=== PATIENT | male | born 1980 | race Caucasian/White ===

== ENCOUNTER 2021-12-30 11:58 | Emergency (ER) | payer SELFPAY ==
--- NOTE | 2021-12-30 12:09 | ED.EYEPROB ---
HPI - Eye Problem General Chief complaint: Eye Problems Stated complaint: EYE REDNESS Time Seen by Provider: 12/30/21 12:09 Source: patient Mode of arrival: ambulatory Limitations: no limitations Related Data Allergies Allergy/AdvReac Type Severity Reaction Status Date / Time No Known Allergies Allergy Unverified 10/20/11 12:06 Discharge Plan Discharge Clinical Impression: Corneal abrasion Patient Disposition: Home, Self-Care Condition: Stable Instructions: Antibiotic Form, Corneal Abrasion (ED) Additional Instructions: Use medications as prescribed. After eye symptoms have resolved, use antibiotic ointment for one more day and then stop. For any worsening of symptoms go to the ER. Prescriptions: New erythromycin 5 mg/gram (0.5 %) ointment 1 applic RIGHT EYE QID 7 Days Qty: 3.5 RF: 0 ketorolac 0.5 % drops 1 drp RIGHT EYE Q6H PRN (Reason: pain) Qty: 3 RF: 0 Follow-up/Referrals: Cj Frances MD [Primary Care Provider] - Time of Disposition:
[2021-12-30 12:11] VITALS: BP 153/99; PULSE 92; RESP 16; TEMP 36.4; O2SAT 98
--- NOTE | 2021-12-30 12:36 | ED.EYEPROB ---
HPI - Eye Problem General Chief complaint: Eye Problems Stated complaint: EYE REDNESS Time Seen by Provider: 12/30/21 12:09 Source: patient Mode of arrival: ambulatory Limitations: no limitations History of Present Illness HPI Narrative: 41 yo M presents with c/o redness, watery R eye for 2 to 3 days. Was working outside on RV on a windy day. Does not remember anything flying into eye. several hours after he was done, sat down at dinner table and felt pain to R eye, wiped eye. No longer having pain but is having irritation from rubbing drainge from eye. no vision change. does not wear contacts. All systems reviewed and except as noted above. Related Data Allergies Allergy/AdvReac Type Severity Reaction Status Date / Time No Known Allergies Allergy Unverified 10/20/11 12:06 Review of Systems Review of Systems: CONSTITUTIONAL: Denies fever, chills, or sweats. EYES: Denies visual changes. Reports redness and discharge. ENT: Denies rhinorrhea, congestion, sore throat, or otalgia. CARDIOVASCULAR: Denies chest pain, palpitations, or edema. RESPIRATORY: Denies cough or dyspnea. GASTROINTESTINAL: Denies abdominal pain, nausea, vomiting, or diarrhea. GENITOURINARY: Denies dysuria or hematuria. SKIN: Denies rash or itching. MUSCULOSKELETAL: Denies back pain, joint pain, or myalgia. NEUROLOGIC: Denies headache, numbness, or weakness. PSYCHIATRIC: Denies anxiety or depression. All other systems reviewed are negative, except as documented in HPI. PMFSH Comments At time of signature, agree with nursing past medical, surgical, social and family history. There is no relevant family history pertinent to the presenting complaint. Exam Narrative: GENERAL: This is a well-nourished, well-developed patient, in no apparent distress. HEAD: normocephalic, atraumatic. EYES: PERRL. Sclera clear/white. Vision is grossly intact. Erythema and mild tissue swelling to upper and lower lids. Corneal abrasion noted with fluorescein stain to right eye. No foreign body. EARS: External ears normal, auditory canals clear and without drainage, TMs normal without perforation. Hearing grossly intact. NOSE: External nose normal with no obvious nasal discharge, nares without redness, no rhinorrhea. THROAT: Mucous membranes moist, posterior pharynx clear. NECK: Neck supple, non-tender without lymphadenopathy, masses or thyromegaly. CARDIOVASCULAR: Regular rate and rhythm without murmurs, gallops, or rubs. RESPIRATORY: Clear to auscultation. Breath sounds equal bilaterally. No wheezes, rales, or rhonchi. GASTROINTESTINAL: Abdomen soft, non-tender, nondistended. Bowel sounds are active. No hepato-splenomegaly, or palpable masses. No guarding. SKIN: warm, Dry, intact with no suspicious lesions or rash, good texture and turgor. NEURO: awake, alert, and oriented to person, place and time. There were no obvious focal neurologic abnormalities. EXTREMITIES: No joint tenderness, effusion, or edema noted. No calf tenderness. Negative Homans sign bilaterally. BACK: Nontender without deformity. No CVA tenderness. Eyes: Eyes/upper lids images: 1. corneal abrasion noted Course Course Level of Care: Express Care Visit Vital Signs Vital signs: Vital Signs Temperature 36.4 C 12/30/21 12:11 Pulse Rate 92 12/30/21 12:11 Respiratory Rate 16 12/30/21 12:11 Blood Pressure 153/99 H 12/30/21 12:11 Pulse Oximetry 98 12/30/21 12:11 Temperature 36.4 C 12/30/21 12:11 Pulse Rate 92 12/30/21 12:11 Respiratory Rate 16 12/30/21 12:11 Blood Pressure 153/99 H 12/30/21 12:11 Pulse Oximetry 98 12/30/21 12:11 Reviewed MDM - Eye Problem MDM Narrative Medical decision making narrative: Patient is aware of diagnosis, understands and agrees to treatment plan. Anticipatory guidance given. Patient agrees to follow-up as directed and is aware of reasons to seek care at the emergency department. Portions of this record may have been created with voice recogniti
== END 2021-12-30 12:29 | disposition home or self-care (01) ==
PROVIDERS: Emergency Provider Nurse Practitioner Family; PCP Family Medicine
DX: S05.01XA Injury of conjunctiva and corneal abrasion without foreign body, right eye, initial encounter (principal); X58.XXXA Exposure to other specified factors, initial encounter
CPT/HCPCS: 99203; A9270; G0463

== ENCOUNTER 2023-07-02 14:23 | Emergency (ER) | payer SELFPAY ==
--- NOTE | ~2023-07-02 | XR_ITS ---
EXAMINATION: XR hand LT min 3V DATE: 07/02/2023 14:56 INDICATION: Pain at the left fourth and fifth metacarpals post dog bite TECHNIQUE: Posteroanterior, oblique and lateral views of the left hand were obtained. COMPARISON: 08/27/2015 FINDINGS: Alignment is normal. No fracture. Joint spaces are normal. Soft tissue swelling at the dorsal/ulnar a spect of the hand. No evident soft tissue gas or radiopaque foreign bodies. IMPRESSION: 1. No osseous abnormality or radiopaque foreign body. Reviewed, dictated and finalized at location A.
--- NOTE | 2023-07-02 14:41 | ED.ANIMALBIT ---
HPI - Animal Bite General Chief Complaint: Animal Bite Stated Complaint: Dog Bite Time Seen by Provider: 07/02/23 14:55 Source: patient and RN notes reviewed Mode of arrival: ambulatory Limitations: no limitations History of Present Illness HPI narrative: 42-year-old male presents with concern for dog bite to his left hand. Reports he was bit around noon today. Reports puncture wounds to left hand. Reports swelling, pain. Denies decreased sensation, strength, range of motion in the hand digits complaint: animal bite Related Data Allergies Allergy/AdvReac Type Severity Reaction Status Date / Time No Known Allergies Allergy Unverified 10/20/11 12:06 Review of Systems Review of Systems: CONSTITUTIONAL: Denies malaise, chills, sweats, or fever. SKIN: Reports puncture wounds to the left hand MUSCULOSKELETAL: Denies muscle skeletal pain NEUROLOGIC: Denies numbness, weakness All systems reviewed & are unremarkable except as noted in HPI and below PMFSH Comments At time of signature, agree with nursing past medical, surgical, social and family history. There is no relevant family history pertinent to the presenting complaint Exam Narrative: GENERAL: Well-appearing, well-nourished, and in no acute distress. HEAD: Normocephalic EYES: PERRLA, conjunctivae clear NECK: Supple. CHEST: Speaks in full sentences. No respiratory distress. HEART: Regular rate and rhythm. Normal and equal peripheral pulses. EXTREMITIES: Left hand and digits of hand have normal strength and sensation. 5/5 strength with digit flexion, extension. Range of motion normal. No clubbing, cyanosis. Mild dorsal edema noted. No tenderness. Skin intact. Normal digital cascade with flexion of fingers, median, ulnar and radial nerve intact. Normal sensation of each side of finger. No scissoring. Normal thumb opposition. Good capillary refill and radial pulse. Distal capillary refill less than 3 seconds. Patient is right/left hand dominant SKIN: Warn, dry, intact, pink. No rash NEURO: Alert and oriented x3. PSYCH: Normal mood and affect Course Course Emergency Course: Wounds cleaned, dressed with clean dressing. Patient is aware of diagnosis, understands and agrees to treatment plan. Anticipatory guidance given. Patient agrees to follow-up as directed and is aware of reasons to seek care at the emergency department. Portions of this record may have been created with voice recognition software Level of Care: Express Care Visit Vital Signs Vital signs: Reviewed. SHERI - Animal Bite MDM Narrative Medical decision making narrative: Does not appear at this time to be erythema multiforme, bullous, SJS, TEN; no evidence at this time to suggest RMSF, NSTI, endocarditis or Lyme disease; patient looks well, nontoxic and is tolerating oral intake; no neurologic signs or symptoms; no headache, photophobia or neck pain; afebrile. Patient does not have history of of penetrating trauma, laceration, blunt trauma, recent surgery, immunosuppression, malignancy, obesity, alcoholism, corticosteroid use. Discussed the importance of follow-up, patient agrees; question, cellulitis versus necrotizing soft tissue infection versus abscess. Differential Diagnosis Differential diagnosis: Likely dog bite and other (Cellulitis) Imaging Data Radiologist's impression: EXAMINATION: XR hand LT min 3V DATE: 07/02/2023 14:56 INDICATION: Pain at the left fourth and fifth metacarpals post dog bite TECHNIQUE: Posteroanterior, oblique and? lateral views of the left hand were obtained. COMPARISON: 08/27/2015 FINDINGS: Alignment is normal. No fracture. Joint spaces are normal. Soft tissue swelling at the dorsal/ulnar aspect of the hand. No evident soft tissue gas or radiopaque foreign bodies. IMPRESSION: 1. No osseous abnormality or radiopaque foreign body. Critical Care Time Critical Care Time Critical Care Time: No Discharge Plan Discharge Clinical Impression: Roxann steele
[2023-07-02 14:43] VITALS: BP 153/118; PULSE 103; RESP 16; TEMP 36.7; O2SAT 97
== END 2023-07-02 15:27 | disposition home or self-care (01) ==
PROVIDERS: Emergency Provider Nurse Practitioner
DX: S61.432A Puncture wound without foreign body of left hand, initial encounter (principal); W54.0XXA Bitten by dog, initial encounter; I10 Essential (primary) hypertension
CPT/HCPCS: 73130; 99213; G0463

== ENCOUNTER 2025-10-08 21:26 | Emergency (ER) | payer OTHER, SELFPAY ==
--- NOTE | ~2025-10-08 | XR_ITS ---
XR forearm RT 2V INDICATION: pain COMPARISON: None FINDINGS: Two views of the right forearm demonstrate no acute fracture or dislocation. IMPRESSION: No acute fracture or dislocation. Reviewed, dictated and finalized at location S. LIFEGUARD
--- NOTE | ~2025-10-08 | XR_ITS ---
XR hand LT min 3V INDICATION: fall . COMPARISON: None. FINDINGS: Frontal, lateral, and oblique views of the left hand demonstrate nondisplaced fracture of the distal radius. IMPRESSION: There is a nondisplaced fracture of the distal radius. Reviewed, dictated and finalized at location S. INAL PRESS OPERATOR
--- NOTE | ~2025-10-08 | CT_ITS ---
CT cervical spine wo con HISTORY: FALL HIT HEAD COMPARISON: None TECHNIQUE: Axial images of the cervical spine were obtained. Multiplanar reconstruction in the coronal, sagittal and axial reformats to evaluate for cervical fracture. FINDINGS: The images demonstrate no acute fracture or paravertebral soft tissue swelling. There is no high-grade central or foraminal stenosis. No significant degenerative changes are noted. The visualized aspect of the upper lungs are clear. IMPRESSION: No acute fracture or subluxation. All CT scans at this facility are performed using low dose modulation techniques as appropriate to perform exam including the following: automated exposure control; adjustment of the mA and/or kV according to patient size (this includes techniques or standardized protocols for targeted exams where does is matched to indication/reason for exam; i.e. extremities or head); use of iterative reconstruction technique). Reviewed, dictated and finalized at location S. NGUAL PATIENT SUPPORT CASEWORKER IMPRESSION: No acute fracture or subluxation. All CT scans at this facility are performed using low dose modulation techniqu es as appropriate to perform exam including the following: automated exposure c ontrol; adjustment of the mA and/or kV according to patient size (this includes techniques or standardized protocols for targeted exams where does is matched to indication/reason for exam; i.e. extremities or head); use of iterative demario nstruction technique).
--- NOTE | ~2025-10-08 | CT_ITS ---
CT brain wo con HISTORY:FALL HIT HEAD COMPARISON: None. TECHNIQUE: Axial images were obtained of the head without intravenous contrast. FINDINGS: No acute intracranial hemorrhage, mass effect or midline shift. No extra-axial fluid collections. The calvarium is intact. Visualized paranasal sinuses and mastoid air cells are clear. IMPRESSION: No acute intracranial hemorrhage or extra axial fluid collections. All CT scans at this facility are performed using low dose modulation techniques as appropriate to perform exam including the following: automated exposure control; use of iterative reconstruction technique; adjustment of the mA and/or kV according to patient size (this includes techniques or standardized protocols for targeted exams where dose is matched to indication/reason for exam). Reviewed, dictated and finalized at location S. ROUND BUTCHER IMPRESSION: No acute intracranial hemorrhage or extra axial fluid collections. All CT scans at this facility are performed using low dose modulation techniqu es as appropriate to perform exam including the following: automated exposure c ontrol; use of iterative reconstruction technique; adjustment of the mA and/or kV according to patient size (this includes techniques or standardized protocol s for targeted exams where dose is matched to indication/reason for exam).
--- NOTE | ~2025-10-08 | XR_ITS ---
XR wrist LT min 3V INDICATION: fall . COMPARISON: None. FINDINGS: Frontal, lateral and oblique views of the left wrist were obtained. Cortical WITHIN THE DISTAL RADIUS SUGGESTIVE OF A NONDISPLACED FRACTURE. IMPRESSION: Questionable nondisplaced fracture of the distal radius. Reviewed, dictated and finalized at location S. H CARE PROFESSIONAL
[2025-10-08 21:28] VITALS: BP 160/99; PULSE 110; RESP 20; TEMP 36.4; O2SAT 98
--- NOTE | 2025-10-08 21:30 | PC.NURSE ---
pt placed in a c collar
[2025-10-09 01:22] VITALS: BP 152/99; PULSE 99; RESP 14; TEMP 36.8; O2SAT 97
[2025-10-09 04:40] VITALS: BP 151/106; PULSE 98; RESP 16; O2SAT 98
--- NOTE | 2025-10-09 05:06 | ED_ITS ---
HPI - Fall General Chief Complaint: Fall Stated Complaint: fall Time Seen by Provider: 10/09/25 04:42 Source: patient and family Mode of arrival: ambulatory Limitations: no limitations History of Present Illness HPI Narrative: Patient is a 44-year-old male presents to the emergency department complaining of a fall. Patient notes that he fell, slipped on the ice, hit the right side of his head in the car and his left wrist of the covers wound, did not lose consciousness. Denies use of blood thinners. Is he is having pain to his V4, for this, inciting incident. Fluids he has been ambulatory since the event. Fall occurred just prior to arrival. Some sleepy sensation in his left hand since the fall, waxes and wanes. Has a history of injuries to these regions in the past. Denies any blood loss. Related Data Allergies Allergy/AdvReac Type Severity Reaction Status Date / Time No Known Allergies Allergy Verified 10/08/25 21:26 Review of Systems Review of Systems: A 10 system review of systems was completed on the patient and is negative exce pt for what is stated in the HPI. Nursing and ancillary documentation was reviewed. Exam Narrative: CONST: No acute distress. Well nourished. HENMT: Head is normocephalic. Mild swelling and tenderness to palpation over the right parietal region without palpable bony deformities no breaks in the skin. Moist mucous membranes. No posterior oropharynx erythema. EYES: No scleral icterus. No conjunctival injection or pallor. PERRL. NECK: No meningeal signs. RESP: Able to speak in full sentences. Normal respiratory effort. CTAB. CARDIO: Regular rate. Regular rhythm. 2+ DP and radial pulses bilaterally. GI: Nondistended. No tenderness to palpation. Soft. : No CVA tenderness to palpation. SKIN: No rashes or lesions noted on exposed skin. NEURO: Oriented x3. Moves all extremities. EXTREM/MSK/BACK: No pedal edema. No midline vertebral tenderness to palpation or palpable step-offs. Moderate tenderness palpation in the left distal radius without obvious deformity, no breaks in the skin. Capillary refill is less than 2 seconds in all distal digits to the left hand. Patient is able to make an okay sign and a fist and abduct and adduct all his fingers of the left hand. Patient is able to flex and extend his left wrist. Compartments are soft throughout the bilateral upper extremities. Patient endorses decreased sensation to light touch throughout the left hand compared to the right. No snuffbox tenderness palpation bilaterally. Mild tenderness to palpation of the right proximal forearm without overlying breaks in the skin, no palpable deformity. Mild tenderness to palpation diffusely throughout the left hand. PSYCH: Normal affect. Course Vital Signs Vital signs: Vital Signs Temperature 97.5 F L 10/08/25 21:28 Pulse Rate 110 H 10/08/25 21:28 Respiratory Rate 20 10/08/25 21:28 Blood Pressure 160/99 H 10/08/25 21:28 Pulse Oximetry 98 10/08/25 21:28 Oxygen Delivery Room Air 10/08/25 21:28 Temperature 98.2 F 10/09/25 01:22 Pulse Rate 98 10/09/25 04:40 Respiratory Rate 16 10/09/25 04:40 Blood Pressure 151/106 H 10/09/25 04:40 Pulse Oximetry 98 10/09/25 04:40 Oxygen Delivery Room Air 10/09/25 04:40 Procedures Orthopedic Splinting/Casting Injury #1: Splinting/Casting Date: 10/09/25 Splinting/Casting Time: 05:16 Side: left Upper Extremity Injury Location: forearm (distal radius) Upper Extremity Immobilizer: sugar tong splint Splint: prefabricated Pre-Procedure Neuro Vascular Exam: abnormal (Paresthesias diffusely throughout the left hand. Normal capillary refill. 2+ radial pulse. Motor str ength intact.) Post-Procedure Neuro Vascular Exam: abnormal (Paresthesias diffusely throughout the left hand. Normal capillary refill. Motor strength intact.) [facility] Narrative Medical decision making narrative: Patient presents with the above complaint. Initial vitals are remarkable for no significant abnormalities. Physical examination as noted above. Plan discussed: CT head and cervical spine, x-ray of the right forearm and left wrist and left hand, ice pack, oxycodone. Patient's compartments are soft, capillary refill is normal in the distal left hand, suspect a component of neurapraxia. Patient educated on signs symptoms of compartment syndrome and reasons to immediately return to the emergency department. I spoke with Orthopedics on-call Dr. Zamora who agrees with plan of care, very low suspicion for any compartment syndrome, also suspect this is likely related to neurapraxia. Patient was reassessed at the bedside. No changes in physical exam. Patient is in no acute distress. The patient has remained stable throughout the entire ED visit. Counseled patient regarding diagnostic results and potential diagnosis. Anticipatory guidance provided. Patient instructed to follow up with Orthopedics in 4-5 days. Patient counseled on: false reassurance from an emergency department evaluation; no current evidence of a medical emergency; return immediately for any new, recurrent, worsening, concerning, or refractory symptoms. Patient prescribed oxycodone, ibuprofen. Prescription sent to preferred pharmacy. Medications discussed with patient. Additional verbal and printed discharge instructions were given and discussed with the patient. Patient verbally acknowledges understanding of condition and discharge instructions. All questions were answered to the patient's satisfaction. Patient is in agreement with the plan of care. The patient is stable for discharge and was discharged without incident. Differential Diagnosis Differential Diagnosis: Fracture, contusion, sprain, strain, intracranial hemorrhage, other acute traumatic injuries. Imaging Data Attestation: I personally reviewed and interpreted this imaging study as follows: Radiologist's impression: ITS Impressions Hand X-Ray 10/08/25 22:08 IMPRESSION: There is a nondisplaced fracture of the distal radius. Wrist X-Ray 10/08/25 22:08 IMPRESSION: Questionable nondisplaced fracture of the distal radius. Forearm X-Ray 10/08/25 22:09 IMPRESSION: No acute fracture or dislocation. Head CT 10/08/25 22:10 IMPRESSION: No acute intracranial hemorrhage or extra axial fluid collections. All CT scans at this facility are performed using low dose modulation techniques as appropriate to perform exam including the following: automated exposure control; use of iterative reconstruction technique; adjustment of the mA and/or kV according to patient size (this includes techniques or standardized protocols for targeted exams where dose is matched to indication/reason for exam). Cervical Spine CT 10/08/25 22:13 IMPRESSION: No acute fracture or subluxation. All CT scans at this facility are performed using low dose modulation techniques as appropriate to perform exam including the following: automated exposure control; adjustment of the mA and/or kV according to patient size (this includes techniques or standardized protocols for targeted exams where does is matched to indication/reason for exam; i.e. extremities or head); use of iterative reconstruction technique). Discharge Plan Discharge Clinical Impression: Distal radius fracture, left, Fall, Contusion of scalp, Contusion of forearm, right Patient Disposition: Home Condition: Stable Instructions: Antibiotic Form, Arm Fracture in Adults (ED), Wrist Fracture in Adults (ED), Compartment Syndrome (DC), Contusion in Adults (ED), Splint Care (ED), P.R.I.C.E. Treatment (ED) Additional Instructions: Follow-up with orthopedic surgery in the next 5 days, call to schedule appointment, wear the splint at all times, keep your left arm elevated above your heart to help with swelling, take the pain medications as prescribed as needed, return immediately to the emergency department for any new or concerning symptoms especially sudden increase in pain, decreased range of motion of your left hand, new or concerning sensation changes, or any emergent concerns for life, limb, eyesight. Patient Language: Turkish Prescriptions: New oxycodone 5 mg tablet 5 mg PO Q6H MDD 4 tabs PRN (Reason: pain) 3 Days Qty: 12 0RF ibuprofen 600 mg tablet 600 mg PO Q6H PRN (Reason: pain) Qty: 30 0RF No Action amoxicillin-pot clavulanate 875-125 mg tablet 1 tablet PO Q12H 10 Days Qty: 20 0RF Follow-up/Referrals: Jesus Acosta MD [Physician, Orthopedics] - 10/12/25 PHYSICIAN,STEREOTYPER [Primary Care Provider, Internal Medicine] Time of Disposition: 05:27
[2025-10-09] MEDS: oxyCODONE/ACETAMINOPHEN (*CRX) 10-325 MG TABLET 1 TAB PO (05:26)
[2025-10-09] MEDS: KETOROLAC 30 MG/ML VIAL (*BKC) 15 MG IM (05:27)
[2025-10-09 05:58] VITALS: BP 140/95; PULSE 93; RESP 18; O2SAT 97
== END 2025-10-09 06:03 | disposition home or self-care (01) ==
PROVIDERS: Emergency Provider Student in an Organized Health Care Education/Training Program
DX: S52.502A Unspecified fracture of the lower end of left radius, initial encounter for closed fracture (principal); S00.03XA Contusion of scalp, initial encounter; S50.11XA Contusion of right forearm, initial encounter; W00.0XXA Fall on same level due to ice and snow, initial encounter
CPT/HCPCS: 29125; 70450; 72125; 73090; 73110; 73130; 96372; 99284; A9270; J1885; L0140